=== PATIENT | male | born 1950 | race Caucasian/White ===

== ENCOUNTER → 2017-02-24 | Outpatient (CLI) | payer OTHER ==
--- NOTE | 2017-02-24 10:17 | Diagnostic Imaging Report ---
EXAMINATION: Two views of the left hip. INDICATION: Left hip pain. FINDINGS: There is mild subchondral sclerosis along the acetabulum with no significant joint space narrowing or osteophytes. No fracture or dislocation. No radiopaque foreign body. Mild degenerative sclerosis at the right SI joint is also seen. IMPRESSION: Mild degenerative changes. Dictated by: Dictated on workstation # [id number]
--- NOTE | 2017-02-24 10:18 | Diagnostic Imaging Report ---
EXAMINATION: Three views of the lumbar spine. INDICATION: Low back pain. FINDINGS: The alignment of the posterior spinal line is satisfactory. The vertebral body heights are preserved. There is mild disc height loss at the L4-5 level. Multilevel anterior osteophytes are seen. Small posterior osteophytes at the L2-3 and L3-4 levels are noted. There is suggestion of a short AP dimension of the spinal canal on a congenital basis. There is mild degenerative sclerotic change of the SI joints bilaterally. 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 Consider MRI of the lumbar spine for further evaluation. Dictated by: Dictated on workstation # [id number]
== END ==
LOC: RAD 09:28
PROVIDERS: ATTEND Nurse Practitioner
DX: M54.16 Radiculopathy, lumbar region (principal); M25.552 Pain in left hip
CPT/HCPCS: 72100; 73502

== ENCOUNTER 2018-03-08 08:46 | Emergency (ER) | payer OTHER ==
[~2018-03-08] VITALS: Ht 180.3 cm; Wt 154.2 kg
--- OUTSIDE RECORDS SUMMARY | 2018-03-08 08:52 | XMS REPORT | Continuity of Care Document ---
Author Author [facility] Organization [facility] Address Unknown Phone Unavailable Allergies Active Description Code Type Severity Reaction Onset Reported/Identified Relationship to Patient Clinical Status Yes CODIENE CODIENE Unknown N/A 11/19/2010 Medications There is no data. Problems Date Dx Coded Attending Type Code Diagnosis Diagnosed By 05/19/2015 Ot V16.0 05/19/2015 Ot V76.51 11/07/2015 CYNDIE RODRÍGUEZ DO Ot M51.36 01/02/2016 CYNDIE RODRÍGUEZ DO Ot M51.36 OTHER INTERVERTEBRAL DISC DEGENERATION, 02/26/2017 MICHAEL HU APRN Ot M25.552 PAIN IN LEFT HIP 02/26/2017 MICHAEL HU APRN Ot M54.16 RADICULOPATHY, LUMBAR REGION 03/12/2017 MICHAEL HU APRN Ot M25.552 PAIN IN LEFT HIP 03/12/2017 MICHAEL HU APRN Ot M54.16 RADICULOPATHY, LUMBAR REGION Procedures There is no data. Results There is no data. Encounters ACCT No. Visit Date/Time Discharge Status Pt. Type Provider Facility Loc./Unit Complaint [id number] 03/04/2017 09:47:00 03/04/2017 23:59:59 CLS Preadmit CYNDIE RODRÍGUEZ DO [facility] REHAB LEFT LEG PAIN; HIP PAIN; SCIATICA [id number] 02/24/2017 09:28:00 02/24/2017 23:59:59 CLS Outpatient MICHAEL HU APRN [facility] RAD LUMBAR PAIN W RADICULOPATHY,LT HIP PAIN [id number] 11/22/2015 14:42:00 01/02/2016 14:56:00 DIS Outpatient CYNDIE RODRÍGUEZ DO [facility] REHAB LUMBAR DDD;B LE PAIN/WEAKNESS [id number] 05/23/2015 10:41:00 05/23/2015 23:59:59 [facility] Preadmit CYNDIE RODRÍGUEZ DO [facility] REHAB [id number] 11/19/2010 07:41:00 Document Registration
[2018-03-08] MEDS ORDERED: MELO15TA39 (09:06)
[2018-03-08] MEDS ORDERED: DULO60CA58 (09:06)
[2018-03-08] MEDS ORDERED: ALLO100T (09:06)
[2018-03-08] MEDS ORDERED: AMLO10TA2 (09:06)
[2018-03-08] MEDS ORDERED: BENA1TAB14 (09:06)
[2018-03-08] MEDS ORDERED: LINA1TAB5 (09:06)
[2018-03-08] MEDS ORDERED: CARV25TA (09:06)
[2018-03-08] MEDS ORDERED: fentaNYL INJECTION 100 MCG/2 ML AMP IVP ONE (09:15)
[2018-03-08] MEDS ORDERED: OXYC-471 PO (09:23)
--- NOTE | 2018-03-08 09:23 | ED Integumentary General ---
General Chief Complaint: Skin/Wound Problems Stated Complaint: SHINGLES X1 MONTH, HAVE GOT WORSE Nursing Triage Note: ARRIVED VIA AMB TO ROOM 07 WITH COMPLAINTS OF SHINGLES THAT WILL NOT GO AWAY. STATES IT IS TO THE POINT HE IS NOT SLEEPING AND IT IS CAUSING PANIC ATTACKS. HAS BEEN ON TWO ROUNDS OF ANTIVIRAL AND IS CURRENTLY ON LYRICA. Source: patient Exam Limitations: no limitations History of Present Illness Date Seen by Provider: March 08, 2018 Time Seen by Provider: 09:09 Initial Comments The patient presents to the ER by private conveyance with chief complaint of shingles of his left neck and shoulder region. This is diagnosed about a month ago at an urgent care and he was put on around of antivirals. He went to see his GP later that week and she extended his antivirals as well as putting him on Lyrica 25 mg. He went back to her because the Lyrica was not helping. She increased the dose to 100 mg twice a day and he still doesn't feel is helping much. He did use a Vicodin that belonged to someone else and said they gave him about 5 hours of pain relief. He says he is having significant pain it's interrupting his sleep and causing him to feel anxious and tearful at times. He denies any fevers chills cough shortness of breath or pain elsewhere. Allergies and Home Medications Allergies Uncoded Allergies: YEFRI (Allergy, Unknown, 11/19/10) Patient Home Medication List Home Medication List Reviewed: Yes Constitutional: No chills, No diaphoresis EENTM: No ear discharge, No ear pain Respiratory: No cough, No phlegm, No short of breath Cardiovascular: No chest pain, No palpitations Gastrointestinal: No abdominal pain, No constipation, No diarrhea Genitourinary: No discharge, No dysuria Past Lzbhgtd-Bfwmle-Wbmxly Hx Patient Social History Alcohol Use: Denies Use Recreational Drug Use: No Smoking Status: Never a Smoker Recent Foreign Travel: No Contact w/Someone Who Travel: No Recent Infectious Disease Expo: No Recent Hopitalizations: No Past Medical History Surgeries: Yes Gallbladder Respiratory: No Cardiac: Yes Hypertension Neurological: No Genitourinary: No Gastrointestinal: No Musculoskeletal: No Endocrine: Yes Diabetes, Non-Insulin dep HEENT: No Cancer: No Integumentary: Yes (SHINGLES) Physical Exam Vital Signs Vital Signs - First Documented 03/08/18 08:49 Temp 98.0 Pulse 88 Resp 18 B/P (MAP) 143/90 (107) Pulse Ox 98 Capillary Refill : Less Than 3 Seconds General Appearance: WD/WN, mild distress HEENT: PERRL/EOMI, pharynx normal Neck: non-tender, normal inspection Cardiovascular: normal peripheral pulses, regular rate, rhythm, no edema Respiratory: lungs clear, normal breath sounds, no respiratory distress, no accessory muscle use Gastrointestinal: normal bowel sounds, non tender, soft Skin: other (erythematous rash with healing patches consistent with shingles. No evidence of secondary actor L infection.) Progress/Results/Core Measures Results/Orders My Orders Orders - CHRIS BHATTI Fentanyl Injection (Sublimaze Injection (03/08/18 09:15) Vital Signs/I&O 03/08/18 08:49 Temp 98.0 Pulse 88 Resp 18 B/P (MAP) 143/90 (107) Pulse Ox 98 Blood Pressure Mean: 107 Departure Impression Primary Impression: Shingles (herpes zoster) polyneuropathy Disposition: 01 HOME, SELF-CARE Condition: Stable Departure-Patient Inst. Decision time for Depature: 09:19 Referrals: CYNDIE RODRÍGUEZ DO (PCP/Family) Primary Care Physician Patient Instructions: Shingles (DC) Add. Discharge Instructions: Continue taking the Lyrica, Aleve 2 capsules twice a day. Keep your skin clean and moisturized with kkek-erk-yeqjang skin ointment. If your pain is unbearable or interrupting her sleep you can use 1 tablet of the oxycodone every 4 hours as needed. Do not mix it with alcohol. While you're using oxycodone you should also use MiraLAX 1 capful mixed in 6-8 ounces of fluid of your choice daily to keep your stools moving. 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 All discharge instructions reviewed with patient and/or family. Voiced understanding. Scripts Oxycodone HCl/Acetaminophen (Oxycodone-Acetaminophen 5-325) 1 Each Tablet 1 EACH PO Q4H PRN for PAIN, #30 TAB 0 Refills Prov: CHRIS BHATTI 03/08/18 Copy Copies To 1: CYNDIE RODRÍGUEZ TITUS J March 08, 2018 09:22
[2018-03-08 09:36] VITALS: BP 143/90
== END 2018-03-08 09:36 | disposition home or self-care (01) ==
LOC: EDUNIT# 08:46 → ER 08:48
DX: B02.8 Zoster with other complications (principal); E11.9 Type 2 diabetes mellitus without complications; I10 Essential (primary) hypertension; Z98.890 Other specified postprocedural states; Z88.5 Allergy status to narcotic agent
CPT/HCPCS: 96374; 99284

== ENCOUNTER 2018-06-04 09:03 | Outpatient (CLI) | payer OTHER ==
[~2018-06-04] VITALS: Ht 180.3 cm; Wt 149.7 kg
[~2018-06-04 09:03] MED LIST: ALLO100T; AMLO10TA2; BENA1TAB14; CARV25TA; DULO60CA58; LINA1TAB5; MELO15TA39; OXYC-471 PO
== END 2018-06-04 14:38 ==
LOC: PREOP 09:03
PROVIDERS: ATTEND Surgery
DX: Z01.818 Encounter for other preprocedural examination (principal); Z12.11 Encounter for screening for malignant neoplasm of colon

== ENCOUNTER 2022-07-19 20:21 | Outpatient (CLI) | payer MEDICARE, OTHER ==
[~2022-07-19 20:21] MED LIST changes: +AMLO-251; -AMLO10TA2; -DULO60CA58; +DULO60CA59; -OXYC-471 PO; +OXYC1TAB11 PO
== END 2022-07-20 06:20 | disposition home or self-care (01) ==
LOC: SLEEP 20:21
PROVIDERS: ATTEND Family Medicine
DX: G47.33 Obstructive sleep apnea (adult) (pediatric) (principal); I10 Essential (primary) hypertension
CPT/HCPCS: 95811

== ENCOUNTER → 2022-08-12 | Outpatient (CLI) | payer MEDICARE, OTHER | LOC: SLEEP 12:43 | PROVIDERS: ATTEND Nurse Practitioner Family | DX: G47.33 Obstructive sleep apnea (adult) (pediatric) (principal) ==

== ENCOUNTER → 2022-12-11 | Outpatient (CLI) | payer MEDICARE, OTHER ==
[~2022-12-11] VITALS: Ht 180.3 cm; Wt 148.7 kg
[~2022-12-11] MED LIST changes: +CYCL10TA25 PO; +DICL100G13 TP; +LINA1TAB PO; +NIAC1CAP PO; +TRM50T PO; +TUME1CAP PO
[2022-12-11 14:04] LABS: BASOPHILS % (AUTO) 0 % (0-10); EOSINOPHILS # (AUTO) 0.1 10^3/uL (0.0-0.3); EOSINOPHILS % (AUTO) 1 % (0-10); HEMATOCRIT 44 % (40-54); HEMOGLOBIN 14.3 g/dL (13.3-17.7); LYMPHOCYTES # (AUTO) 1.5 10^3/uL (1.0-4.0); LYMPHOCYTES % (AUTO) 15 % (12-44); MEAN CORPUSCULAR HEMOGLOBIN 29 pg (25-34); MEAN CORPUSCULAR HGB CONC 33 g/dL (32-36); MEAN CORPUSCULAR VOLUME 87 fL (80-99); MEAN PLATELET VOLUME 10.5 fL (9.0-12.2); MONOCYTES # (AUTO) 0.8 10^3/uL (0.0-1.0); MONOCYTES % (AUTO) 8 % (0-12); NEUTROPHILS # (AUTO) 7.3 10^3/uL (1.8-7.8); NEUTROPHILS % (AUTO) 75 % (42-75); PLATELET COUNT 396 10^3/uL (130-400); WHITE BLOOD COUNT 9.7 10^3/uL (4.3-11.0)
[2022-12-11 14:18] LABS: ALBUMIN 3.7 GM/DL (3.2-4.5); POTASSIUM 4.5 MMOL/L (3.6-5.0)
[2022-12-11 14:19] LABS: CALCIUM 10.4 MG/DL (8.5-10.1)
[2022-12-11 14:20] LABS: INR 1.2 (0.8-1.4); PROTHROMBIN TIME PATIENT 15.9 SEC (12.2-14.7)
[2022-12-11 14:21] LABS: ERYTHROCYTE SEDIMENTATION RATE 17 MM/HR (0-30)
[2022-12-11 14:22] LABS: BILIRUBIN,TOTAL 0.8 MG/DL (0.1-1.0)
[2022-12-11 14:24] LABS: CREATININE SERUM 1.7 MG/DL (0.60-1.30)
--- NOTE | 2022-12-11 14:38 | Physical Therapy Pre-Op Eval ---
PT Pre-Surgical Assessment Type of Surgery Type of Surgery: right TKA Prior Level of Function Current Living Status: Significant Other Locomotion (Upon Admit): Straight Cane PLOF DME: Front Wheeled Walker Subjective Subjective Patient has constant unrated pain in right knee. Home: Single Level Current Living Status: Significant Other Entry Into Home: Stairs With Railing Steps Into Home: 5 Motor Control Motor Control: Motor Control WNL ROM Patient is lacking about 10 degrees of full extension Strength Strength: WFL Gait Patient performs transfers and ambulation independently using a cane Treatment Rendered Treatment: Patient instructed in assistive device, supported ambulation. Patient instructed in and given written program of ROM and strengthening exercises to be preformed post-op. Patient instructed in movement precautions where applicable. Patient demonstrates understandings of post-operative therapy protocol including gait pattern and exercise program. Pre-operative instruction completed; await physical therapy orders after surgery. Treatment Goal Met: Yes Assessment Goals Acheived: I Ambulation w/ FWW, Understands P-op Precaut, I Post-op Exercises Charges/GCodes Time In: 1345 Time Out: 1356 Total Billed Treatment Time: 11 Total Billed Treatment 1 visit EVTON MORALES PT Dec 11, 2022 14:38
[2022-12-11 14:42] LABS: CLARITY,URINE CLEAR; COLOR,URINE YELLOW; GLUCOSE, URINE (UA) NEGATIVE (NEGATIVE); KETONES,URINE NEGATIVE (NEGATIVE); LEUKOCYTE ESTERASE ,URINE NEGATIVE (NEGATIVE); NITRITE,URINE NEGATIVE (NEGATIVE); PH,URINE 5.5 (5-9); PROTEIN,URINE 1+ (NEGATIVE)
[2022-12-11 14:54] VITALS: BP 98/68
[2022-12-11 15:06] LABS: BILIRUBIN,URINE 1+ (NEGATIVE)
[2022-12-11 15:07] LABS: BACTERIA,URINE TRACE /HPF; RBC,URINE RARE /HPF; SQUAMOUS EPITHELIAL CELL,UR RARE /HPF
--- NOTE | 2022-12-11 16:10 | Diagnostic Imaging Report ---
EXAMINATION: Chest 2 view HISTORY: Preoperative evaluation COMPARISON: None available. FINDINGS: Heart size and pulmonary vasculature are normal. The lungs are clear without consolidation, pleural effusion, or pneumothorax. Degenerative changes of the thoracic spine. Osseous structures are otherwise intact. IMPRESSION: 1. No acute radiographic abnormality in the chest. Dictated by: Dictated on workstation # [id number]
== END | disposition home or self-care (01) ==
LOC: PREOP 12:56
PROVIDERS: ATTEND Orthopaedic Surgery
DX: Z01.818 Encounter for other preprocedural examination (principal); M17.11 Unilateral primary osteoarthritis, right knee; R53.83 Other fatigue
CPT/HCPCS: 36415; 71046; 80053; 81000; 85025; 85610; 85652; 86850; 86900; 86901; 87081

== ENCOUNTER 2022-12-18 06:00 | Inpatient (IN) | payer MEDICARE, OTHER ==
--- NOTE | 2022-12-11 06:42 | HISTORY AND PHYSICAL ---
DATE OF SERVICE: 12/18/2022 ADMISSION HISTORY AND PHYSICAL This will be for inpatient admission on 12/18/2022 for right total knee arthroplasty. The patient will require regular inpatient admission due to physical therapy needs, also for gait abnormalities and pain management. HISTORY: The patient is a 72-year-old gentleman with complaints of progressively worsening right knee pain. Radiographs reveal severe tricompartmental osteoarthritis. He has undergone treatment with injections, which have provided only temporary relief of his symptoms. He reports that currently not helping. Because of this, he elected to proceed with surgical intervention. REVIEW OF SYSTEMS: No chest pain, no shortness of breath. No dysuria. PAST MEDICAL HISTORY: Hypertension and obesity. PAST SURGICAL HISTORY: Cholecystectomy, tonsillectomy, epidural in the lumbar spine. FAMILY HISTORY: Unknown. PRIMARY CARE PROVIDER: Dr. Dumas. MEDICATIONS: Turmeric, allopurinol, amlodipine, benazepril, hydrochlorothiazide, Coreg, Cymbalta, niacin, diclofenac, Jentadueto, tramadol, meloxicam, cyclobenzaprine. ALLERGIES: CODEINE. SOCIAL HISTORY: The patient denies alcohol and tobacco use. PHYSICAL EXAM: The patient is well-developed, well-nourished, in no acute distress. HEENT: Normocephalic, atraumatic. Pupils are equal, round and reactive to light. Oropharynx is clear. NECK: Supple. No lymphadenopathy. LUNGS: Clear to auscultation bilaterally. HEART: Regular rate and rhythm. ABDOMEN: Soft, nontender, nondistended. EXTREMITIES: The right knee demonstrates a moderate effusion. There is no erythema or warmth. He has marked patellofemoral crepitus and pain with patellar loading. He is tender along the medial femoral condyle. Range of motion 0/5/115. No varus or valgus laxity. Negative anterior and posterior drawer. No skin lesions are noted. IMPRESSION: Severe right knee osteoarthritis. PLAN: Right total knee arthroplasty. The risks, benefits, options, ramifications and recovery have been discussed at length with the patient. He understands and wishes to proceed. This will be for inpatient admission on 12/18/2022. Job ID: [id number] DocumentID: [id number] Dictated Date: 11/29/2022 09:30:50 Stem Roller Date: 11/29/2022 12:45:00 Dictated By: ARELI ORTEGA MD
[2022-12-18] VITALS (11 sets, daily range): BP systolic 106–157; BP diastolic 58–95
[~2022-12-18] VITALS: Ht 180.3 cm; Wt 148.0 kg
[~2022-12-18 06:00] MED LIST changes: -ALLO100T; +ALLO100T PO; -AMLO-251; +AMLO-251 PO; -BENA1TAB14; +BENA1TAB14 PO; -CARV25TA; +CARV25TA PO; -DULO60CA59; +DULO60CA59 PO; -MELO15TA39; +MELO15TA39 PO
[2022-12-18] MEDS ORDERED: CEFUROXIME INJECTION 1,500 MG in NS (IVPB) 50 ML IV ONE ×4 (06:15)
[2022-12-18] MEDS ORDERED: LACTATED RINGERS 1,000 ML IV PRN ×2 (06:15)
[2022-12-18] MEDS ORDERED: ROPIVACAINE 5MG/ML 30ML VIAL ONE (06:47)
[2022-12-18] MEDS ORDERED: LIDOCAINE PF 2% 5 ML (XYLOCAINE) VIAL ONE ×2 (06:49→06:54)
[2022-12-18] MEDS ORDERED: MIDAZOLAM 2 MG/2 ML (VERSED) VIAL ONE (06:50)
[2022-12-18] MEDS ORDERED: SEVOFLURANE (ULTANE) 15 ML INHAL SOLN ONE ×2 (06:54→09:18)
[2022-12-18] MEDS ORDERED: fentaNYL INJ 100 MCG/2 ML AMP ONE ×2 (06:54→09:36)
[2022-12-18] MEDS ORDERED: proPOfol 200 MG/20 ML (DIPRIVAN) VIAL IV ONE (06:54)
[2022-12-18] MEDS ORDERED: ONDANSETRON 4 MG/2 ML (SDV) Z0FRAN ONE (06:54)
[2022-12-18] MEDS ORDERED: NALOXONE 0.4 MG/ML 1 ML (NARCAN) VIAL IV PRN (07:15)
[2022-12-18] MEDS ORDERED: diphenhydrAMINE 50 MG/ML INJ (BENADRYL) IVP PRN (07:15)
[2022-12-18] MEDS ORDERED: ONDANSETRON 4 MG/2 ML (SDV) Z0FRAN IVP PRN ×2 (07:15→09:30)
[2022-12-18] MEDS ORDERED: morphine PCA 100 MG/100 ML BAG IV PRN (07:15)
--- NOTE | 2022-12-18 07:32 | Progress Note-Pre Operative ---
Pre-Operative Progress Note Date of Available H&P: Nov 29, 2022 Date H&P Reviewed: Dec 18, 2022 Time H&P Reviewed: 07:11 Changes from last HP none Pre-Operative Diagnosis: right knee primary osteoarthritis ARELI ORTEGA MD Dec 18, 2022 07:32
--- NOTE | 2022-12-18 07:33 | Progress Note-Post Operative ---
Post-Operative Progess Note Surgeon (s)/Informaticist (s) Surgeon ARELI ORTEGA MD Informaticist: Benny Miranda Pre-Operative Diagnosis right knee primary osteoarthritis Post-Operative Diagnosis right knee primary osteoarthritis Procedure & Operative Findings Date of Procedure 12/18/22 Procedure Performed/Findings right total knee arthroplasty Anesthesia Type GETA Estimated Blood Loss Estimated blood loss (mL): minimal Specimens/Packing Specimens Removed none Packing: none ARELI ORTEGA MD Dec 18, 2022 07:33
--- NOTE | 2022-12-18 07:35 | D/C HH Face to Face Order ---
D/C Face to Face Orders Reconcile Patient Problems Problems Reviewed?: Yes Instructions for Patient [facility], Patient Instructions/FollowUp: three weeks Physician to follow Patient: three weeks Discharge Diet for Home: Regular Diet Patient Data-Allergies,Ht & Wt Patient Allergies: Coded Allergies: codeine (Verified Allergy, Unknown, Pt has received Morphine in the past, 12/11/22) NAUSEA/VOMITING Height (Feet): 5 Height (Inches): 11.00 Weight (Pounds): 330 Weight (Ounces): 0.0 Home Health Need/Face to Face Date of Face to Face: Dec 18, 2022 Clinical Findings: Muscle weakness, Pain with ambulation, Unsteady gait I have seen Pt gtle-cs-nieo: Yes Discharged To: Home Diagnosis/Conditions: right total knee arthroplasty Patient is Homebound due to: Muscle weakness, Pain w/ambulation Homebound Status Due to the above stated illness, injury or surgical procedure (medical condition or diagnosis) and associated clinical findings, the patient is homebound because of his/her inability to leave home except with aid of a supportive device and/or person AND leaving the home requires a considerable and taxing effort or is medically contraindicated. Pt req the following assistanc: Walker Home Health Nursing Orders Home Health Services Order: Physical Therapy-Evaluate & Treat DC right knee josé miguel and apply steri strips 01/01/23 Home Health Infusion Therapy Line Start Date: Dec 18, 2022 Therapy Orders Therapy Orders: Physical Therapy, PT to assess for OT Therapy Specific Orders: Eval assistive deivces, Teach enviro modifications/safety, Gait training, Increase strength/endurance, Provider maintenance therapy, Restore ROM Certify Stmt I certify that this patient is under my care and that I, a nurse practitioner or a physician; a assistant scientist working with me, had a face to face encounter that - meets the physician face to face encounter requirements with this patient as dated. ARELI ORTEGA MD Dec 18, 2022 07:35
[2022-12-18] MEDS ORDERED: NS (IVPB) 33 ML, ROPIVACAINE INJECTION 275 MG, EPINEPHrine 1 MG INJECTION 0.5 MG, morp... IU ONE ×4 (07:45)
[2022-12-18] MEDS ORDERED: TRANEXAMIC ACID 100 MG/ML 10 ML INJECTION ONE (07:52)
[2022-12-18] MEDS ORDERED: HYDROmorphone 2 MG/ML VIAL (DILAUDID) ONE ×2 (08:02→09:26)
[2022-12-18] MEDS ORDERED: PHENYLEPHRINE 100 MCG/ML 10 ML (ANESTHESIA) SYR ONE (08:59)
[2022-12-18] MEDS ORDERED: fentaNYL INJ 100 MCG/2 ML AMP IVP ONE (09:30)
[2022-12-18] MEDS ORDERED: HYDROmorphone 2 MG/ML VIAL (DILAUDID) IV ONE (09:30)
--- NOTE | 2022-12-18 10:07 | Progress Note ---
Standard Progress Note Progress Notes/Assess & Plan Date Seen by a Provider: Dec 18, 2022 Time Seen by a Provider: 09:37 Progress/Assessment & Plan post op check denies paresthesias radiographs--HW well positioned without fracture RLE--2 plus DP pulse with brisk cap refill intact DF and PF of toes and ankle sensation intact to light touch throughout s/p RTKA mobilize as able ARELI ORTEGA MD Dec 18, 2022 10:07
[2022-12-18] MEDS: NS IV 1000 ML 1,000 ML IV SCH ×2 (10:52→20:58)
[2022-12-18] MEDS: oxyCODONE/APAP 5/325MG (PERCOCET 5) TABLET PO PRN ×2 (10:53→23:30)
[2022-12-18] MEDS: SENNA W/DOCUSATE (SENOKOT S) TABLET PO SCH ×2 (10:53→20:58)
[2022-12-18] MEDS: CYCLOBENZAPRINE 10 MG (FLEXERIL) TAB PO PRN (10:58)
--- NOTE | 2022-12-18 13:43 | Physical Therapy Evaluation ---
PT Evaluation-General Medical Diagnosis Admission Date Dec 18, 2022 at 06:00 Medical Diagnosis: Right TKA Onset Date: Dec 18, 2022 Therapy Diagnosis Therapy Diagnosis: gait deficit, strength deficit Height/Weight Height (Feet): 5 Height (Inches): 11.00 Weight (Pounds): 330 Weight (Ounces): 0.0 Precautions Precautions/Isolations: Fall Prevention Weight Bear Status Right Lower Extremity: Right Weight Bearing/Tolerated Left Lower Extremity: Left Full Weight Bearing Referral Physician: Dr. Delarosa Reason for Referral: Evaluation/Treatment Medical History Reviewed History: Yes Social History Home: [facility] Current Living Status: Significant Other Entry Into Home: Stairs With Railing PT Steps Into Home: 3 PT Steps Inside Home: 10 Prior Prior Level of Function SCALE: Activities may be completed with or without assistive devices. 5-Uokvhkktoa-pxqvthz completes the activity by him/herself with no assistance from a helper. 5-Set-up or Clean-up Assistance-helper sets up or cleans up; patient completes activity. War assists only prior to or following the activity. 4-Supervision or Touching Assistance-helper provides verbal cues and/or touching/steadying and/or contact guard assistance as patient completes activity. Assistance may be provided throughout the activity or intermittently. 3-Partial/Moderate Assistance-helper does LESS THAN HALF the effort. War lifts, holds or supports trunk or limbs, but provides less than half the effort. 2-Substantial/Maximal Assistance-helper does MORE THAN HALF the effort. War lifts or holds trunk or limbs and provides more than half the effort. 4-Tgtbpmaln-kfxsmr does ALL the effort. Patient does none of the effort to complete the activity. Or, the assistance of 2 or more helpers is required for the patient to complete the activity. If activity was not attempted, code reason: 7-Patient Refused. 9-Not Applicable-not attempted and the patient did not perform the activity before the current illness, exacerbation or injury. 10-Not Attempted due to Environmental Limitations-(lack of equipment, weather restraints, etc.). 88-Not Attempted due to Medical Conditions or Safety Concerns. Bed Mobility: 6 Transfers (B,C,W/C): 6 Gait: 6 Stairs: 6 Indoor Mobility (Ambulation): Independent Stairs: Independent Prior Devices Use: None Will Need FWW for discharge to home. PT Evaluation-Current Subjective Patient lying supine in bed upon PT arrival, agreeable to treatment. Patient rates pain in right knee at 4/10. Patient states he does not have to go to the second story of his house, but will need a FWW for home use. Objective Patient Orientation: Person, Place, Time, Situation Attachments: Oxygen, Polar Pack, IV ROM/Strength ROM Lower Extremities Left LE WFLs all observed planes. Right knee 15 degrees from full extension in sitting; flexion 80 degrees in sitting. All other right LE ROMs WFLs Strength Lower Extremities Left LE 5/5 all planes. Right hip 4-/5 all planes, right knee extension 3-/5, flexion 3-/5. Sensory Hearing: Functional Sensation Right Lower Extremit: Intact Sensation Left Lower Extremity: Intact Transfers Roll Left to Right (QC): 5 Sit to Lying (QC): 5 Lying to Sitting/Side of Bed(Q: 5 Sit to Stand (QC): 2 Chair/Map-lr-Qmjsu Xfer(QC): 4 Gait Does the Patient Walk?: Yes Mode of Locomotion: Walk Anticipated Mode of Locomotion: Walk Walk 10 feet (QC): 88 Distance: 5 feet Gait Assistive Device: FWW Balance Sitting Static: Good Sitting Dynamic: Good Standing Static: Fair Standing Dynamic: Fair Assessment/Needs Patient tolerated treatment well. Performs bed mobility with supervision. However upon attempting to stand requires max A and bed raised to assist in standing. Patient ambulates 5 feet with FWW with CGA and verbal cues to the chair. Patient in chair post treatment with all needs met, nursing notified, call light in hand. Rehab Potential: Good PT Fdc Goals Fdc Goals PT Gin Inspector Goals Time Frame: Dec 28, 2022 Roll Left & Right (QC): 6 Sit to Lying (QC): 6 Lying-Sitting on Side/Bed(QC): 6 Sit to Stand (QC): 6 Chair/Iho-jp-Jpnci Xfer(QC): 6 Toilet Transfer (QC): 6 Does the Patient Walk: Yes Walk 10 feet (QC): 4 Walk 50ft with 2 Turns (QC): 4 Walk 150 ft (QC): 4 1 Step (curb) (QC): 4 4 Steps (QC): 4 12 Steps (QC): 4 PT Plan Problem List Problem List: Activity Tolerance, Functional Strength, Safety, Balance, Gait, Transfer, Bed Mobility, ROM Treatment/Plan Treatment Plan: Continue Plan of Care Treatment Plan: Bed Mobility, Education, Functional Activity Yonatan, Functional Strength, Group Therapy, Gait, Safety, Therapeutic Exercise, Transfers Treatment Duration: Jan 18, 2023 Frequency: 11 times per week Estimated Hrs Per Day: .25 hour per day Safety Risks/Education Patient Education: Gait Training, Transfer Techniques Teaching Recipient: Patient Teaching Methods: Demonstration, Discussion Response to Teaching: Verbalize Understanding, Return Demonstration Time Time In: 1310 Time Out: 1335 DATE: Dec 18, 2022 Total Billed Treatment Time: 25 Total Billed Treatment Visit, KIMBERLEY TURPIN JOHN A PT Dec 18, 2022 13:43
--- NOTE | 2022-12-18 14:28 | OPERATIVE REPORT ---
DATE OF SERVICE: 12/18/2022 PREOPERATIVE DIAGNOSIS:. Right knee primary osteoarthritis. POSTOPERATIVE DIAGNOSIS: Right knee primary osteoarthritis. PROCEDURE: Right total knee arthroplasty. SURGEON: Jean Claude Ortega MD JOURNEYMAN PIPE WELDER: Benny Miranda, who assisted throughout the procedure and closed the incision. ANESTHESIA: General endotracheal by Bandar Lowery CRNA. TOURNIQUET TIME: Approximately 70 minutes at 300 mmHg. ESTIMATED BLOOD LOSS: Minimal. DRAINS: None. COMPLICATIONS: None. POSTOPERATIVE PLAN: Routine protocol. MATERIALS: MicroPort cemented size 6 femur, cemented size 6+ tibia with 10 mm insert and cemented size 35 patellar button. STATEMENT OF MEDICAL NECESSITY: The patient is a 72-year-old gentleman with longstanding progressive right knee pain. Radiographs revealed severe tricompartmental osteoarthritis. He has been treated with injections and anti-inflammatories without relief. Due to functional impairment and failure to improve with conservative measures, the patient elected to proceed with surgical intervention. DESCRIPTION OF PROCEDURE: After risks and benefits of the procedure were discussed and questions were answered and informed consent was signed and placed on the chart, the operative site was confirmed in the preoperative holding area, initialed by surgeon. The patient was then transported to the operating room and after adequate levels of general endotracheal anesthetic were obtained, timeout was called, confirming the operative site. The right lower extremity was prepped and draped in the usual sterile fashion with the leg elevated and the knee flexed, tourniquet inflated to 300 mmHg. Standard anterior approach was utilized. Hemostasis was obtained with cautery. Medial parapatellar arthrotomy was performed, leaving 1 cm cuff on the patella for later reattachment. A portion of the fat pad was resected. Subperiosteal release was performed in the proximal medial tibia. The ACL was resected. The intramedullary guide was passed into the femoral canal. The distal cutting block was placed and distal cut was made. The femur sized to a size 6. The 6 cutting block was placed parallel to the epicondylar axis and cuts were made from posterior to anterior. Subperiosteal release was then carefully performed on the posterior distal femur, being careful to stay on the bony surface with curved osteotome. The intramedullary guide was then passed into the tibial. The cutting block was placed. The drop chikis transected the intermalleolar axis and the cut was made. The 6+ baseplate was placed. Again, the drop chikis transected the intermalleolar axis and this was prepared with the drill and keel punch. The femoral trial was placed and trochlear cut was made. The patella was prepared by resecting 10 mm off the under surface. The peg guide was placed and peg holes were drilled. The 35 trial was placed and the knee was taken through range of motion. Full extension was easily obtained, 20 degrees of flexion with gravity was easily obtained. The patella tracked well. There was no anterior/posterior or medial/lateral laxity in flexion or extension. The trials were removed. The periarticular block was placed in the posterior capsule, medial and lateral retinaculum, extensor mechanism and subcutaneous tissues. The bone ends were irrigated and dried. The tibial baseplate cemented into position. Excessive cement was removed. The superior surface was irrigated and dried. The tibial insert was placed. The distal femur was irrigated and dried and the femoral prosthesis was cemented into position. Excessive cement was removed. The knee was brought out in full extension until cement cured. The undersurface of the patella was irrigated and dried and the patellar button was cemented into position. Excessive cement was removed. Once the cement had cured, the knee was taken through range of motion. Full extension was easily obtained under 20 degrees of flexion with gravity was easily obtained. The patella tracked well. There was no anterior/posterior or medial/lateral laxity in flexion or extension. The joint was further irrigated with pulse lavage. The arthrotomy was closed with #2 Tevdek in ahtedb-vh-meuxu interrupted fashion. Knee was flexed. The repair was stable. Subcutaneous tissues were irrigated using a total of 6 liters throughout the procedure, 0 Vicryl was used for the deep subcutaneous layer, 2-0 Vicryl for the superficial subcutaneous layer, josé miguel used on the skin. A soft dressing was applied. The tourniquet was deflated. The patient was transferred to recovery room awake and in stable condition. Job ID: [id number] DocumentID: [id number] Dictated Date: 12/18/2022 09:27:21 Gas Appliance Servicer Date: 12/18/2022 14:26:00 Dictated By: JEAN CLAUDE ORTEGA MD
[2022-12-18] MEDS: CEFUROXIME INJECTION 750 MG in NS (IVPB) 50 ML IV SCH ×2 (15:31→23:31)
[2022-12-18] MEDS: inSUlin ASPART (NovoLOG) 1 UNIT/0.01 ML (CHARGE PER UNIT) SC SCH ×2 (15:31→20:58)
--- NOTE | 2022-12-18 15:35 | Diagnostic Imaging Report ---
EXAMINATION: Right knee radiographs, 2 views. COMPARISON: None. HISTORY: 72-year-old male, right knee prosthesis placement. FINDINGS: There is a right total knee prosthesis. There are anterior skin josé miguel. Soft tissue and intra-articular gas likely reflect the recent post operative state of the patient. There is a probable very large knee joint effusion. There is a chronic deformity of the proximal fibular diaphysis. There is no identified acute fracture. There is material overlying the patient which does limit the study. IMPRESSION: 1. Right total knee prosthesis noted without hardware complication. 2. Probable very large knee joint effusion. 3. No radiographically apparent acute fracture. Dictated by: Dictated on workstation # [id number]
[2022-12-18] MEDS ORDERED: TURM500T PO (16:08)
[2022-12-18] MEDS ORDERED: PATIENT MAY USE OWN MEDS, ALL MC SCH ×2 (18:00→19:15)
--- NOTE | 2022-12-18 18:10 | Consultation ---
History of Present Illness History of Present Illness Patient Consulted On(serafin/time) 12/18/22 18:05 Date Seen by Provider: Dec 18, 2022 Time Seen by Provider: 12:45 History of Present Illness This is a 72 year old male who underwent right TKA by Dr. Delarosa today. I follow the patient medically for hypertension, diabetes, hyperlipidemia and sleep apnea. I am asked to consult postoperatively for medical management. The patient is currently resting comfortably in bed with his ice device on his knee and no complaints. His pain is currently well controlled and he denies nausea. He is still a little groggy from anesthesia but no complaints at this time. Allergies and Home Medications Allergies Coded Allergies: codeine (Verified Allergy, Unknown, Pt has received Morphine in the past, 12/11/22) NAUSEA/VOMITING Patient Home Medication List Home Medication List Reviewed: Yes Allopurinol (Allopurinol) 100 Mg Tablet, 100 MG PO 1800, (Reported) Entered as Reported by: YUNI EASTMAN on 03/08/18905 Last Action: Reviewed Amlodipine Besylate (Amlodipine Besylate) 10 Mg Tablet, 10 MG PO HS, (Reported) Entered as Reported by: YUNI EASTMAN on 03/08/18905 Last Action: Reviewed Benazepril/Hydrochlorothiazide (Benazepril-Hctz 20-12.5 mg Tab) 20 Mg-12.5 Mg Tablet, 2 EA PO DAILY, (Reported) Entered as Reported by: YUNI EASTMAN on 03/08/18905 Last Action: Reviewed Carvedilol (Carvedilol) 25 Mg Tablet, 50 MG PO 1800, (Reported) Entered as Reported by: YUNI EASTMAN on 03/08/18905 Last Action: Reviewed Cyclobenzaprine HCl (Cyclobenzaprine HCl) 10 Mg Tablet, 10 MG PO TID PRN for MUSCLE SPASMS, (Reported) Entered as Reported by: CHAZ NAJERA on 12/11/22 1153 Last Action: Reviewed Duloxetine HCl (Duloxetine HCl) 60 Mg Capsule.dr, 60 MG PO 1800, (Reported) Entered as Reported by: YUNI EASTMAN on 03/08/18905 Last Action: Reviewed Linagliptin/Metformin HCl (Jentadueto 2.5 mg-500 mg Tab) 2.5 Mg-500 Mg Tablet, 1 EACH PO 1800, (Reported) Entered as Reported by: CHAZ NAJERA on 12/11/221152 Last Action: Reviewed Meloxicam (Meloxicam) 15 Mg Tablet, 15 MG PO DAILY PRN for PAIN BREAKTROUGH, (Reported) Entered as Reported by: YUNI EASTMAN on 03/08/18905 Last Action: Reviewed Tramadol HCl (Tramadol HCl) 50 Mg Tablet, 50-100 MG PO Q6H PRN for PAIN-MODERATE (5-7), (Reported) Entered as Reported by: CHAZ NAJERA on 12/11/221152 Last Action: Reviewed Turmeric Root Extract (Turmeric) 500 Mg Tablet, 500 MG PO DAILY, (Reported) Entered as Reported by: ASHLEIGH PATEL on 12/18/22 1608 Last Action: Reviewed Discontinued Medications Diclofenac Sodium (Diclofenac Sodium) 1 % Gel..gram., 100 GM TP UD, (Reported) Discontinued Reason: No Longer Taking Entered as Reported by: CHAZ NAJERA on 12/11/221152 Last Action: Discontinued Niacin (Inositol Niacinate) (Niacin 500 mg Capsule) 500 Mg Capsule, 500 MG PO UD, (Reported) Discontinued Reason: No Longer Taking Entered as Reported by: CHAZ NAJERA on 12/11/221153 Last Action: New Order Oxycodone HCl/Acetaminophen (Oxycodone-Acetaminophen 5-325) 1 Each Tablet, 1 EACH PO Q4H PRN for PAIN Discontinued Reason: No Longer Taking Prescribed by: CHRIS BHATTI on 03/08/18922 Last Action: Discontinued Tumeric/Ging/[place]/Oreg/Capryl (Candicidal Capsule) Unknown Strength Capsule, Unknown Dose PO, (Reported) Discontinued Reason: Prescription changed Entered as Reported by: CHAZ NAJERA on 12/11/221152 Last Action: New Order Past Ggqmzrk-Bckoya-Vwgfme Hx Patient Social History Smoking Status: Never a Smoker Substance use?: No Alcohol Use?: No Pt feels they are or have been: No Immunizations Up To Date Date of Influenza Vaccine: Jul 16, 2023 First/Initial COVID19 Vaccinat: 01/29/21 Second COVID19 Vaccination Serafin: 02/26/21 Date of Pneumonia Vaccine: Aug 10, 2022 Seasonal Allergies Seasonal Allergies: No Current Status Advance Directives: No Primary Language: Kiswahili Preferred Spoken Language: Kiswahili Is interpretation needed?: No Past Medical History Surgeries: Gallbladder, Tonsillectomy Sleep Apnea Currently Using CPAP: Yes Currently Using BIPAP: No Hypertension Sexually Transmitted Disease: No HIV/AIDS: No Arthritis Diabetes, Non-Insulin dep Loss of Vision: Denies Hearing Impairment: Denies Blood Disorders: No Adverse Reaction/Blood Tranf: No (N/A) Review of Systems Review of Systems General: No Chills, No Night Sweats, No Fatigue, No Malaise, No Appetite, No Other HEENT: No Head Aches, No Visual Changes, No Eye Pain, No Ear Pain, No Dysphasia, No Sinus Congestion, No Post Nasal Drip, No Sore Throat, No Other Pulmonary: No Dyspnea, No Cough, No Pleuritic Chest Pain, No Other Cardiovascular: Edema Gastrointestinal: No: Nausea, Vomiting, Abdominal Pain, Diarrhea, Constipation, Melena, Hematochezia, Other Genitourinary: No Dysuria, No Frequency, No Incontinence, No Hematuria, No Retention, No Other Musculoskeletal: leg pain Neurological: No: Weakness, Numbness, Incoordination, Change in speech, Confusion, Seizures, Other Physical Exam Vital Signs Vital Signs - First Documented 12/18/22 06:20 Temp 36.1 Pulse 96 Resp 20 B/P (MAP) 115/69 (84) Pulse Ox 96 O2 Delivery Room Air Capillary Refill : Height, Weight, BMI Height: 5'11.00" Weight: 330lbs. 0.0oz. 149.742274wh; 45.52 BMI Method:Stated General Appearance: No Apparent Distress HEENT: Normal ENT Inspection Neck: Supple Respiratory: Lungs Clear Cardiovascular: Regular Rate, Rhythm, Gallop/S4 Gastrointestinal: Normal Bowel Sounds, Non Tender, Soft Rectal: Deferred Back: No CVA Tenderness Extremity: Non Tender, No Calf Tenderness, No Pedal Edema, Other (ALVA hose in place bilaterally with right knee ice brace on ) Neurologic/Psychiatric: Alert, Oriented x3 Skin: Warm/Dry Comments Laboratory Tests 12/18/22 06:20: Calcium Level 10.2H 12/18/22 06:52: Glucometer 133H 12/18/22 15:40: Glucometer 120H Assessment/Plan Assessment/Plan Admission Dx 1. Right Unilateral Knee Arthritis--S/P Right TKA per ortho today--pain control, PT/OT, IS, lovenox for DVT prophylaxis, monitor H/H 2. Hypertension--resume home meds 3. DMII--start Jentadueto and accuchecks with SSI A 4. BEV--brought home CPAP CYNDIE RODRÍGUEZ DO Dec 18, 2022 18:10
[2022-12-18] MEDS: CARVEDILOL 25 MG TAB PO SCH (20:57)
[2022-12-18] MEDS: JENTADUETO PO SCH (20:57)
[2022-12-19 04:00] VITALS: BP 105/94
[2022-12-19] MEDS: oxyCODONE/APAP 5/325MG (PERCOCET 5) TABLET PO PRN ×5 (04:34→18:36)
[2022-12-19 05:38] LABS: HEMOGLOBIN 11.6 g/dL (13.3-17.7)
[2022-12-19] MEDS: inSUlin ASPART (NovoLOG) 1 UNIT/0.01 ML (CHARGE PER UNIT) SC SCH ×4 (05:52→20:49)
[2022-12-19 07:33] VITALS: BP 145/56
[2022-12-19] MEDS: JENTADUETO PO SCH ×2 (07:43→18:34)
[2022-12-19] MEDS: ENOXAPARIN INJECTION 30 MG/0.3 ML SYR SC SCH ×2 (07:43→21:08)
[2022-12-19] MEDS: ASPIRIN E.C. 81 MG (ECOTRIN) TAB PO SCH (07:44)
[2022-12-19] MEDS: NS IV 1000 ML 1,000 ML IV SCH ×2 (07:44→18:37)
[2022-12-19] MEDS: SENNA W/DOCUSATE (SENOKOT S) TABLET PO SCH ×2 (07:45→21:08)
[2022-12-19] MEDS: CYCLOBENZAPRINE 10 MG (FLEXERIL) TAB PO PRN ×2 (07:45→18:36)
[2022-12-19] MEDS: CARVEDILOL 25 MG TAB PO SCH ×2 (07:45→21:37)
[2022-12-19] MEDS: amLODIPine 10 MG (NORVASC) TAB PO SCH (07:45)
--- NOTE | 2022-12-19 08:07 | Progress Note ---
Standard Progress Note Progress Notes/Assess & Plan Date Seen by a Provider: Dec 19, 2022 Time Seen by a Provider: 08:01 Progress/Assessment & Plan post op check denies paresthesias radiographs--HW well positioned without fracture RLE--2 plus DP pulse with brisk cap refill intact DF and PF of toes and ankle sensation intact to light touch throughout s/p RTKA mobilize as able Final Diagnosis no complaints ambulating with PT Vital Signs Date Time Temp Pulse Resp B/P (MAP) Pulse Ox O2 Delivery O2 Flow Rate FiO2 12/19/22 07:33 37.0 101 18 145/56 (85) 91 Room Air 12/19/22 05:01 18 12/19/22 04:00 37.4 97 18 105/94 (98) 90 Room Air 12/18/22 23:33 36.5 86 18 117/68 (84) 91 Room Air 12/18/22 20:25 36.1 89 20 106/58 (74) 94 Room Air 12/18/22 20:00 Room Air 12/18/22 16:03 36.1 89 16 117/79 (92) 91 Room Air 12/18/22 11:48 36.3 103 18 141/79 (99) 91 Room Air 12/18/22 10:15 Nasal Cannula 2.00 12/18/22 10:10 36.5 12 152/92 (112) 95 Nasal Cannula 2.00 12/18/22 10:05 OxyMask 2.00 12/18/22 10:00 12 151/95 (113) 98 OxyMask 2.00 12/18/22 09:50 OxyMask 8 12/18/22 09:50 13 129/72 (91) 98 OxyMask 8 12/18/22 09:40 12 138/91 (107) 99 OxyMask 8 12/18/22 09:35 OxyMask 8 12/18/22 09:30 16 157/89 (111) 98 OxyMask 8 12/18/22 09:22 OxyMask 8 12/18/22 09:22 36.4 16 144/84 (104) 99 OxyMask 8 I & O 12/19/22 07:00 Intake Total 1860 ml Output Total 400 ml Balance 1460 ml Laboratory Tests Test 12/18/22 15:40 12/18/22 20:41 12/19/22 05:25 12/19/22 05:51 Range/Units Glucometer 120 H 122 H 134 H 70-110 MG/DL Hemoglobin 11.6 L 13.3-17.7 g/dL Hematocrit 36 L 40-54 % RLE--dressing intact no calf tenderness s/p RTKA doing well PT/OT ARELI ORTEGA MD Dec 19, 2022 08:07
[2022-12-19] MEDS ORDERED: BENAZEPRIL HYDROCHLOROTHIAZIDE PO SCH (09:00)
[2022-12-19] MEDS ORDERED: DULoxetine 30 MG (CYMBALTA) CAP PO SCH (09:00)
[2022-12-19] MEDS ORDERED: amLODIPine 5 MG (NORVASC) TAB PO SCH (09:00)
--- NOTE | 2022-12-19 09:03 | Anesthesia-General Post-Op ---
General Patient Condition Mental Status/LOC: Same as Preop Cardiovascular: Satisfactory Nausea/Vomiting: Absent Respiratory: Satisfactory Pain: Controlled Complications: Absent Post Op Complications Complications None Follow Up Care/Instructions Patient Instructions None needed. Anesthesia/Patient Condition Patient Condition Patient is doing well, no complaints, stable vital signs, no apparent adverse anesthesia problems. No complications reported per nursing. D/C home per [facility] Criteria: Yes MAX MOORE CRNA Dec 19, 2022 09:03
--- NOTE | 2022-12-19 10:30 | Physical Therapy Daily Note ---
PT Daily Note-Current Subjective Patient agrees to PT. Just received pain pill. Pain Numeric Pain Scale: 5-Moderate Pain Location: Right Location Body Site: Knee Pain Description: Acute Section J - Health Conditions 1. Rarely or not at all 2. Occasionally 3. Frequently 4. Almost constantly 8. Unable to answer Pain Effect on Sleep: 1 Pain Interference with Therapy: 1 Pain Interference w/Day-to-Day: 1 Mental Status Patient Orientation: Normal For Age Attachments: IV Transfers SCALE: Activities may be completed with or without assistive devices. 8-Zixcazebpm-sofqhlp completes the activity by him/herself with no assistance from a helper. 5-Set-up or Clean-up Assistance-helper sets up or cleans up; patient completes activity. [place] assists only prior to or following the activity. 4-Supervision or Touching Assistance-helper provides verbal cues and/or touching/steadying and/or contact guard assistance as patient completes activity. Assistance may be provided throughout the activity or intermittently. 3-Partial/Moderate Assistance-helper does LESS THAN HALF the effort. [place] lifts, holds or supports trunk or limbs, but provides less than half the effort. 2-Substantial/Maximal Assistance-helper does MORE THAN HALF the effort. [place] lifts or holds trunk or limbs and provides more than half the effort. 3-Ubiuhbqpo-ncczhw does ALL the effort. Patient does none of the effort to complete the activity. Or, the assistance of 2 or more helpers is required for the patient to complete the activity. If activity was not attempted, code reason: 7-Patient Refused. 9-Not Applicable-not attempted and the patient did not perform the activity before the current illness, exacerbation or injury. 10-Not Attempted due to Environmental Limitations-(lack of equipment, weather restraints, etc.). 88-Not Attempted due to Medical Conditions or Safety Concerns. Lying to Sitting/Side of Bed(Q: 6 Sit to Stand (QC): 4 Chair/Soc-ku-Ygtut Xfer(QC): 4 Weight Bearing Right Lower Extremity: Right Weight Bearing/Tolerated Left Lower Extremity: Left Full Weight Bearing Gait Training Distance: 250' Walk 10 feet (QC): 4 Walk 50 ft with 2 Turns(QC): 4 Walk 150 ft (QC): 4 Gait Assistive Device: FWW VC's for body placement in FWW due to extended UE posture/use/antalgic gait sequence Exercises Supine Ex: Ankle pumps, Quad Set, Heel Slides, Straight leg raise Supine Reps: 15 Seated Therapy Exercises: Long arc quads Seated Reps: 15 Assessment Patient's right knee AROM improving with exercise program. Patient progressing per plan and will dismiss to home tomorrow after PT per physician report. PT Fpc Goals Fpc Goals PT Fpc Goals Time Frame: Dec 28, 2022 Roll Left & Right (QC): 6 Sit to Lying (QC): 6 Lying-Sitting on Side/Bed(QC): 6 Sit to Stand (QC): 6 Chair/Jbk-vl-Mpnup Xfer(QC): 6 Toilet Transfer (QC): 6 Does the Patient Walk: Yes Walk 10 feet (QC): 4 Walk 50ft with 2 Turns (QC): 4 Walk 150 ft (QC): 4 1 Step (curb) (QC): 4 4 Steps (QC): 4 12 Steps (QC): 4 PT Plan Treatment/Plan Treatment Plan: Continue Plan of Care Treatment Plan: Bed Mobility, Education, Functional Activity Yonatan, Functional Strength, Group Therapy, Gait, Safety, Therapeutic Exercise, Transfers Treatment Duration: Jan 18, 2023 Frequency: 11 times per week Estimated Hrs Per Day: .25 hour per day Time Time In: 740 Time Out: 809 DATE: Dec 19, 2022 Total Billed Treatment Time: 29 Total Billed Treatment 1 visit EX 18 min GT 11 min ZHANNA CISSE PT Dec 19, 2022 10:30
--- NOTE | 2022-12-19 10:41 | Occupational Therapy Eval ---
OT Evaluation-General/PLF Medical Diagnosis Admission Date Dec 18, 2022 at 06:00 Medical Diagnosis: Right TKA Onset Date: Dec 18, 2022 Therapy Diagnosis Therapy Diagnosis: weakness, need for assistance w/ self care Height/Weight Height (Feet): 5 Height (Inches): 11.00 Weight (Pounds): 330 Weight (Ounces): 0.0 Precautions Precautions/Isolations: Fall Prevention, Standard Precautions Weight Bear Status Weight Bearing Restriction: Weight Bearing/Tolerated Location Restriction: R LE Referral Physician: Dr. Delarosa Referral Reason: Self Care, Evaluation/Treatment Medical History Pertinent Medical History: DM, HTN Additional Medical History sleep apnea, CPAP Current History s/p RTKA Social History Home: Multilevel Current Living Status: Significant Other Entry Into Home: Stairs With Railing Steps Into Home: 3 Steps Inside Home: 10 Other Obstacles: narrow passagesways, old house ADL-Prior Level of Function SCALE: Activities may be completed with or without assistive devices. 4-Gqhfyukzwt-rmedrkd completes the activity by him/herself with no assistance from a helper. 5-Set-up or Clean-up Assistance-helper sets up or cleans up; patient completes activity. [place] assists only prior to or following the activity. 4-Supervision or Touching Assistance-helper provides verbal cues and/or touching/steadying and/or contact guard assistance as patient completes activity. Assistance may be provided throughout the activity or intermittently. 3-Partial/Moderate Assistance-helper does LESS THAN HALF the effort. [place] lifts, holds or supports trunk or limbs, but provides less than half the effort. 2-Substantial/Maximal Assistance-helper does MORE THAN HALF the effort. [place] lifts or holds trunk or limbs and provides more than half the effort. 5-Bejadmjyl-wiwbcl does ALL the effort. Patient does none of the effort to complete the activity. Or, the assistance of 2 or more helpers is required for the patient to complete the activity. If activity was not attempted, code reason: 7-Patient Refused. 9-Not Applicable-not attempted and the patient did not perform the activity before the current illness, exacerbation or injury. 10-Not Attempted due to Environmental Limitations-(lack of equipment, weather restraints, etc.). 88-Not Attempted due to Medical Conditions or Safety Concerns. Self Care: Independent Functional Cognition: Independent DME/Equipment: Bath Chair (tub shower), Tall Toilet (uses lavatory to assist w/ transfer at times) DME/Equipment Comments used cane prior to surgery, has walker at home, partner will bring to hospital tomorrow to access safety of device Occupation: retired Drive Self: Yes OT Current Status Subjective Laying supine reclined in bed w/ partner present , "It's been an busy morning" Pain Numeric Pain Scale: 0-No Pain Comment: pain present w/LB dressing and transition to stand/sit 5/10 resolves w/rest Mental Status/Objective Patient Orientation: Person, Place, Time, Situation Attachments: Other-See Comments (wound dressing R knee) Current Glasses/Contacts: No Hearing Aids: No Dentures/Partials: No Upper Extremity ROM BUE ROM WNL Upper Extremity Strength BUE Strength +4/5MMT however weakness to transition push form surface to stand ADL-Treatment ADL-Current OT provided simulated tub shower transfers w/ pt/partner , pt declined shower currently, LB dressing sequences, and ADL transfer education. Patient is hesitant to stand and requires additional time and specific hand placement instruction as well as use of FWW, projected plan to sleep in recliner at home to decrease assistance out of bed Eating (QC): 6 Oral Hygiene (QC): 6 Shower/Bathe Self (QC): 4 Upper Body Dressing (QC): 6 Lower Body Dressing (QC): 4 On/Off Footwear (QC): 4 Toileting Hygiene (QC): 7 (declined performance) Education OT Patient Education: Correct positioning, Exercise program, Instructions to caregiver, Modified ADL techniques, Progress toward Goal/Update tx plan, Purpose of tx/functional activities, Reviewed precautions, Rehab process, Safety issues, Transfer techniques, Use of adapted equipment Teaching Recipient: Patient, Significant Other Teaching Methods: Demonstration, Discussion Response to Teaching: Verbalize Understanding, Return Demonstration, Reinforcement Needed OT Jail Goals Jail Goals Toileting Hygiene (QC): 6 Shower/Bathe Self (QC): 6 Upper Body Dressing (QC): 6 Lower Body Dressing (QC): 6 On/Off Footwear (QC): 6 1=Demonstrate adherence to instructed precautions during ADL tasks. 2=Patient will verbalize/demonstrate understanding of assistive devices/modifications for ADL. 3=Patient will improve strength/tolerance for activity to enable patient to perform ADL's. OT Education/Plan Problem List/Assessment Assessment: Decreased Activ Tolerance, Decreased Safety Aware, Decreased UE Strength, Impaired Coordination, Impaired Funct Balance, Impaired I ADL's, Impaired Self-Care Skills Discharge Recommendations Plan/Recommendations: Continue POC Therapy Discharge Recommendati: Post Acute OT Treatment Plan/Plan of Care Treatment,Training & Education: Yes Patient would benefit from OT for education, treatment and training to promote independence in ADL's, mobility, safety and/or upper extremity function for ADL's. Plan of Care: ADL Retraining, Functional Mobility, UE Funct Exercise/Act Treatment Duration: Dec 28, 2022 Frequency: 3 times per week (3-5 times per week) Estimated Hrs Per Day: .25 hour per day Agreement: Yes Rehab Potential: Good Patient returned to bed, Partner in room all needs met Time Start Time: 10:00 Stop Time: 10:28 DATE: Dec 19, 2022 Total Time Billed (hr/min): 28 Billed Treatment Time 1 visit ADL 2 28 min JONEL SANDOVAL OT Dec 19, 2022 10:41
[2022-12-19 11:31] VITALS: BP 108/54
--- NOTE | 2022-12-19 13:08 | Progress Note ---
Subjective Date Seen by a Provider: Dec 19, 2022 Time Seen by a Provider: 08:30 Subjective/Events-last exam Fwup HTN, DMII, BEV, S/P right TKA. Did well with PT this morning. Pain well controlled. Objective Exam Vital Signs Date Time Temp Pulse Resp B/P (MAP) Pulse Ox O2 Delivery O2 Flow Rate FiO2 12/19/22 11:31 37.0 84 18 108/54 (72) 86 Room Air 12/19/22 08:00 Room Air 12/19/22 07:33 37.0 101 18 145/56 (85) 91 Room Air 12/19/22 07:30 18 12/19/22 05:01 18 12/19/22 04:00 37.4 97 18 105/94 (98) 90 Room Air 12/18/22 23:33 36.5 86 18 117/68 (84) 91 Room Air 12/18/22 20:25 36.1 89 20 106/58 (74) 94 Room Air 12/18/22 20:00 Room Air 12/18/22 16:03 36.1 89 16 117/79 (92) 91 Room Air I & O 12/19/22 07:00 Intake Total 1860 ml Output Total 400 ml Balance 1460 ml Capillary Refill : General Appearance: No Apparent Distress Neck: Supple Respiratory: Lungs Clear Cardiovascular: Regular Rate, Rhythm Gastrointestinal: normal bowel sounds, non tender, soft Extremity: Non Tender, No Calf Tenderness, No Pedal Edema (ALVA hose in place) Neurologic/Psychiatric: Alert, Oriented x3 Skin: Warm/Dry, Other (dry dressing in place to knee) Results Lab Laboratory Tests 12/18/22 15:40: Glucometer 120H 12/18/22 20:41: Glucometer 122H 12/19/22 05:25: Hemoglobin 11.6L, Hematocrit 36L 12/19/22 05:51: Glucometer 134H 12/19/22 11:03: Glucometer 166H Assessment/Plan Assessment/Plan Assess & Plan/Chief Complaint 1. Hypertension--home meds restarted 2. DMII--started home meds and on accuchecks with SSI A as well 3. BEV--using home CPAP 4. Right TKA--pain control, lovenox for DVT prophylaxis, PT/OT started Clinical Quality Measures Admission Status Admission Dx 1. Right Unilateral Knee Arthritis--S/P Right TKA per ortho today--pain control, PT/OT, IS, lovenox for DVT prophylaxis, monitor H/H 2. Hypertension--resume home meds 3. DMII--start Jentadueto and accuchecks with SSI A 4. BEV--brought home CPAP CYNDIE RODRÍGUEZ DO Dec 19, 2022 13:08
--- NOTE | 2022-12-19 14:23 | Physical Therapy Daily Note ---
PT Daily Note-Current Subjective Patient agrees to PT. Pain Numeric Pain Scale: 7 Location: Right Location Body Site: Knee Pain Description: Acute Comment: with meds issued Section J - Health Conditions 1. Rarely or not at all 2. Occasionally 3. Frequently 4. Almost constantly 8. Unable to answer Pain Effect on Sleep: 1 Pain Interference with Therapy: 1 Pain Interference w/Day-to-Day: 1 Mental Status Patient Orientation: Normal For Age Transfers SCALE: Activities may be completed with or without assistive devices. 0-Lxdczgzhmi-biugyfc completes the activity by him/herself with no assistance from a helper. 5-Set-up or Clean-up Assistance-helper sets up or cleans up; patient completes activity. [place] assists only prior to or following the activity. 4-Supervision or Touching Assistance-helper provides verbal cues and/or t ouching/steadying and/or contact guard assistance as patient completes activity. Assistance may be provided throughout the activity or intermittently. 3-Partial/Moderate Assistance-helper does LESS THAN HALF the effort. [place] lifts, holds or supports trunk or limbs, but provides less than half the effort. 2-Substantial/Maximal Assistance-helper does MORE THAN HALF the effort. [place] lifts or holds trunk or limbs and provides more than half the effort. 8-Yrnhwpcpc-xmcgfh does ALL the effort. Patient does none of the effort to complete the activity. Or, the assistance of 2 or more helpers is required for the patient to complete the activity. If activity was not attempted, code reason: 7-Patient Refused. 9-Not Applicable-not attempted and the patient did not perform the activity before the current illness, exacerbation or injury. 10-Not Attempted due to Environmental Limitations-(lack of equipment, weather restraints, etc.). 88-Not Attempted due to Medical Conditions or Safety Concerns. Lying to Sitting/Side of Bed(Q: 6 Sit to Stand (QC): 4 Weight Bearing Right Lower Extremity: Right Weight Bearing/Tolerated Left Lower Extremity: Left Full Weight Bearing Gait Training Distance: 300' Walk 10 feet (QC): 5 Walk 50 ft with 2 Turns(QC): 5 Walk 150 ft (QC): 5 Gait Assistive Device: FWW steady, antalgic, reciprocal pattern Exercises Supine Ex: Ankle pumps, Quad Set, Heel Slides, Straight leg raise Supine Reps: 15 Seated Therapy Exercises: Long arc quads Seated Reps: 15 Assessment Patient tolerated treatment well and remains seated EOB with friend present. PT to increase activity and ROM right knee as tolerated by patient. Plan dismissal to home tomorrow after PT per patient report. PT Post Exchange Manager Goals Post Exchange Manager Goals PT Post Exchange Manager Goals Time Frame: Dec 28, 2022 Roll Left & Right (QC): 6 Sit to Lying (QC): 6 Lying-Sitting on Side/Bed(QC): 6 Sit to Stand (QC): 6 Chair/Qwf-sd-Lnzfe Xfer(QC): 6 Toilet Transfer (QC): 6 Does the Patient Walk: Yes Walk 10 feet (QC): 4 Walk 50ft with 2 Turns (QC): 4 Walk 150 ft (QC): 4 1 Step (curb) (QC): 4 4 Steps (QC): 4 12 Steps (QC): 4 PT Plan Treatment/Plan Treatment Plan: Continue Plan of Care Treatment Plan: Bed Mobility, Education, Functional Activity Yonatan, Functional Strength, Group Therapy, Gait, Safety, Therapeutic Exercise, Transfers Treatment Duration: Jan 18, 2023 Frequency: 11 times per week Estimated Hrs Per Day: .25 hour per day Time Time In: 1240 Time Out: 1256 DATE: Dec 19, 2022 Total Billed Treatment Time: 16 Total Billed Treatment 1 visit FA 16 min ZHANNA CISSE PT Dec 19, 2022 14:23
[2022-12-19 16:31] VITALS: BP 109/66
[2022-12-19 20:10] VITALS: BP 90/46
[2022-12-19] MEDS: DULoxetine 30 MG (CYMBALTA) CAP PO SCH (21:37)
[2022-12-19] MEDS: HCTZ PO SCH (21:37)
[2022-12-19] MEDS: BENAZEPRIL PO SCH (21:37)
--- NOTE | 2022-12-19 23:02 | DISCHARGE SUMMARY ---
DISCHARGE DIAGNOSES: 1. Right knee primary osteoarthritis. 2. Hypertension. PROCEDURE: Right total knee arthroplasty. SUMMARY OF HOSPITAL COURSE: The patient is a 72-year-old gentleman who underwent a right total knee arthroplasty on the day of admission. Postoperatively, he did very well. At the time of discharge, the wound was clean and dry and no calf tenderness. Negative Homans sign. He was tolerating his diet well and tolerating pain with oral pain medication. CONDITION AT DISCHARGE: Good. DISCHARGE DIET: Regular. FOLLOWUP: Is in 3 weeks from physical therapy will be arranged. ACTIVITIES: Weightbearing as tolerated with a walker as needed. DISCHARGE MEDICATIONS: Home medications. Percocet as needed for pain and 1 aspirin per day for 30 days. Job ID: [id number] DocumentID: [id number] Dictated Date: 12/19/2022 08:06:19 Senior Product Development Engineer Date: 12/19/2022 23:00:00 Dictated By: ARELI ORTEGA MD
[2022-12-19 23:35] VITALS: BP 92/52
[2022-12-20 03:30] VITALS: BP 87/55
[2022-12-20] MEDS: oxyCODONE/APAP 5/325MG (PERCOCET 5) TABLET PO PRN (03:44)
[2022-12-20 05:00] VITALS: BP 110/68
[2022-12-20] MEDS: inSUlin ASPART (NovoLOG) 1 UNIT/0.01 ML (CHARGE PER UNIT) SC SCH (05:22)
[2022-12-20 05:52] LABS: HEMOGLOBIN 10.7 g/dL (13.3-17.7)
[2022-12-20] MEDS ORDERED: morphine INJ 4 MG/ML 1 ML (VIAL/SYRINGE) IVP PRN (07:00)
--- NOTE | 2022-12-20 07:00 | Progress Note ---
Standard Progress Note Progress Notes/Assess & Plan Date Seen by a Provider: Dec 20, 2022 Time Seen by a Provider: 06:50 Progress/Assessment & Plan post op check denies paresthesias radiographs--HW well positioned without fracture RLE--2 plus DP pulse with brisk cap refill intact DF and PF of toes and ankle sensation intact to light touch throughout s/p RTKA mobilize as able Final Diagnosis no complaints Laboratory Tests Test 12/19/22 11:03 12/19/22 16:21 12/19/22 20:22 12/20/22 05:05 Range/Units Glucometer 166 H 121 H 131 H 70-110 MG/DL Hemoglobin 10.7 L 13.3-17.7 g/dL Hematocrit 33 L 40-54 % Test 12/20/22 05:17 Range/Units Glucometer 129 H 70-110 MG/DL Vital Signs Date Time Temp Pulse Resp B/P (MAP) Pulse Ox O2 Delivery O2 Flow Rate FiO2 12/20/22 05:00 36.5 96 20 110/68 (82) 93 Room Air 12/20/22 03:30 36.5 109 20 87/55 (66) 92 Room Air 12/19/22 23:35 37.4 94 18 92/52 (65) 91 Room Air 12/19/22 21:00 16 12/19/22 20:10 37.9 96 16 90/46 (61) 97 Room Air 12/19/22 20:00 Room Air 12/19/22 16:31 36.6 86 16 109/66 (80) 97 Room Air 12/19/22 12:53 96 Room Air 12/19/22 11:31 37.0 84 18 108/54 (72) 86 Room Air 12/19/22 08:00 Room Air 12/19/22 07:33 37.0 101 18 145/56 (85) 91 Room Air 12/19/22 07:30 18 I & O 12/20/22 07:00 Intake Total 2000 ml Output Total 1250 ml Balance 750 ml RLE--incision clean and dry no calf tenderness neg Peter's s/p RTKA doing well DC after PT today ARELI ORTEGA MD Dec 20, 2022 07:00
[2022-12-20 07:42] VITALS: BP 104/73
[2022-12-20] MEDS: JENTADUETO PO SCH (08:00)
[2022-12-20] MEDS: CARVEDILOL 25 MG TAB PO SCH (08:00)
[2022-12-20] MEDS: HCTZ PO SCH (08:00)
[2022-12-20] MEDS: ENOXAPARIN INJECTION 30 MG/0.3 ML SYR SC SCH (08:00)
[2022-12-20] MEDS: ASPIRIN E.C. 81 MG (ECOTRIN) TAB PO SCH (08:00)
[2022-12-20] MEDS: DULoxetine 30 MG (CYMBALTA) CAP PO SCH (08:00)
[2022-12-20] MEDS: amLODIPine 10 MG (NORVASC) TAB PO SCH (08:00)
[2022-12-20] MEDS: BENAZEPRIL PO SCH (08:00)
[2022-12-20] MEDS: SENNA W/DOCUSATE (SENOKOT S) TABLET PO SCH (08:09)
--- NOTE | 2022-12-20 08:46 | Occupational Ther Daily Note ---
OT Current Status-Daily Note Subjective Sitting up in chair, excited to DC, requests shower set up Pain Numeric Pain Scale: 4 Location: Right Location Body Site: Knee Comment: edema present Mental Status/Objective Patient Orientation: Person, Place, Time, Situation IV access to be removed following shower, OT provided plastic cover for protection ADL-Treatment toileting, shower set up and disrobe of LB/UB garments, walk in shower transfer/bench transfer sequence Therapy Code Descriptions/Definitions Functional [place] Measure: 0=Not Assessed/NA 4=Minimal Assistance 1=Total Assistance 5=Supervision or Setup 2=Maximal Assistance 6=Modified [place] 3=Moderate Assistance 7=Complete IndependenceSCALE: Activities may be completed with or without assistive devices. 4-Rxreyrjaom-wmxbrnf completes the activity by him/herself with no assistance from a helper. 5-Set-up or Clean-up Assistance-helper sets up or cleans up; patient completes activity. [place] assists only prior to or following the activity. 4-Supervision or Touching Assistance-helper provides verbal cues and/or t ouching/steadying and/or contact guard assistance as patient completes activity. Assistance may be provided throughout the activity or intermittently. 3-Partial/Moderate Assistance-helper does LESS THAN HALF the effort. [place] lifts, holds or supports trunk or limbs, but provides less than half the effort. 2-Substantial/Maximal Assistance-helper does MORE THAN HALF the effort. [place] lifts or holds trunk or limbs and provides more than half the effort. 9-Fmxuivxwf-ulfmjl does ALL the effort. Patient does none of the effort to complete the activity. Or, the assistance of 2 or more helpers is required for the patient to complete the activity. If activity was not attempted, code reason: 7-Patient Refused. 9-Not Applicable-not attempted and the patient did not perform the activity before the current illness, exacerbation or injury. 10-Not Attempted due to Environmental Limitations-(lack of equipment, weather restraints, etc.). 88-Not Attempted due to Medical Conditions or Safety Concerns. Eating (QC): 6 Oral Hygiene (QC): 6 Bathing Location: L Arm, R Arm, L Upper Leg, R Upper Leg, L Lower Leg (including foot), R Lower Leg (including foot) (with verbal instruction for safety), Chest, Abdomen, Buttocks, Perineal Area Shower/Bathe Self (QC): 4 (Instruction for safety d/t environment barrieres ) Upper Body Dressing (QC): 6 Lower Body Dressing (QC): 6 On/Off Footwear: 6 (extra time required) Toileting Hygiene (QC): 6 Toilet Transfer (QC): 6 (use of GBs d/t lower toilet than at home) Education OT Patient Education: Correct positioning, Energy conservation, Modified ADL techniques, Progress toward Goal/Update tx plan, Purpose of tx/functional activities, Reviewed precautions, Rehab process, Safety issues, Transfer techniques, Use of adapted equipment Teaching Recipient: Patient Teaching Methods: Demonstration, Discussion Response to Teaching: Verbalize Understanding, Return Demonstration OT Retirement Goals Retirement Goals Toileting Hygiene (QC): 6 Shower/Bathe Self (QC): 4 (no met d/t environmental barrier) Upper Body Dressing (QC): 6 Lower Body Dressing (QC): 6 On/Off Footwear (QC): 6 1=Demonstrate adherence to instructed precautions during ADL tasks. 2=Patient will verbalize/demonstrate understanding of assistive devices/modifications for ADL. 3=Patient will improve strength/tolerance for activity to enable patient to perform ADL's. DC to home planned for today OT Education/Plan Discharge Recommendations Plan/Recommendations: Discharge/Goals Met (DC to home today, rec: supervison w/ home bathing until HH clears) Treatment Plan/Plan of Care Treatment,Training & Education: Yes Patient would benefit from OT for education, treatment and training to promote independence in ADL's, mobility, safety and/or upper extremity function for ADL's. Plan of Care: ADL Retraining, Functional Mobility, UE Funct Exercise/Act Treatment Duration: Dec 28, 2022 Frequency: 3 times per week (3-5 times per week) Estimated Hrs Per Day: .25 hour per day Agreement: Yes Rehab Potential: Good Time Start Time: 08:06 Stop Time: 08:29 DATE: Dec 20, 2022 Total Time Billed (hr/min): 23 Billed Treatment Time 1 visit ADL 2 23 min JONEL SANDOVAL OT Dec 20, 2022 08:46
--- NOTE | 2022-12-20 10:11 | Physical Therapy Daily Note ---
PT Daily Note-Current Subjective Patient agrees to PT. Pain Numeric Pain Scale: 5-Moderate Pain Location: Right Location Body Site: Knee Pain Description: Acute Section J - Health Conditions 1. Rarely or not at all 2. Occasionally 3. Frequently 4. Almost constantly 8. Unable to answer Pain Effect on Sleep: 1 Pain Interference with Therapy: 1 Pain Interference w/Day-to-Day: 1 Mental Status Patient Orientation: Normal For Age Transfers SCALE: Activities may be completed with or without assistive devices. 8-Myrisriqtx-weomwqb completes the activity by him/herself with no assistance from a helper. 5-Set-up or Clean-up Assistance-helper sets up or cleans up; patient completes activity. [place] assists only prior to or following the activity. 4-Supervision or Touching Assistance-helper provides verbal cues and/or touching/steadying and/or contact guard assistance as patient completes activity. Assistance may be provided throughout the activity or intermittently. 3-Partial/Moderate Assistance-helper does LESS THAN HALF the effort. [place] lifts, holds or supports trunk or limbs, but provides less than half the effort. 2-Substantial/Maximal Assistance-helper does MORE THAN HALF the effort. [place] lifts or holds trunk or limbs and provides more than half the effort. 9-Rkykuqxnt-vfhnso does ALL the effort. Patient does none of the effort to complete the activity. Or, the assistance of 2 or more helpers is required for the patient to complete the activity. If activity was not attempted, code reason: 7-Patient Refused. 9-Not Applicable-not attempted and the patient did not perform the activity befo re the current illness, exacerbation or injury. 10-Not Attempted due to Environmental Limitations-(lack of equipment, weather re straints, etc.). 88-Not Attempted due to Medical Conditions or Safety Concerns. Sit to Stand (QC): 6 Weight Bearing Right Lower Extremity: Right Weight Bearing/Tolerated Left Lower Extremity: Left Full Weight Bearing Gait Training Distance: 250' x 2 Walk 10 feet (QC): 6 Walk 50 ft with 2 Turns(QC): 6 Walk 150 ft (QC): 6 Gait Assistive Device: FWW steady, antalgic gait Stair Training Stair Training: Handrails/: 2 handrails #of Steps: 4 1 Step (curb) (QC): 4 4 Steps (QC): 4 Stairs: Pattern: Step to Exercises Supine Ex: Quad Set, Heel Slides, Straight leg raise Supine Reps: 15 Seated Therapy Exercises: Ankle pumps, Long arc quads Seated Reps: 15 Assessment Patient tolerated treatment well and is progressing with treatment plan. Patient instructed and educated on continuing to perform HEP PRN at home. Patient voices understanding. Patient has attained all functional goals. PT Detention Goals Detention Goals PT Detention Goals Time Frame: Dec 28, 2022 Roll Left & Right (QC): 6 Sit to Lying (QC): 6 Lying-Sitting on Side/Bed(QC): 6 Sit to Stand (QC): 6 Chair/Nwp-yc-Jxmna Xfer(QC): 6 Toilet Transfer (QC): 6 Does the Patient Walk: Yes Walk 10 feet (QC): 4 Walk 50ft with 2 Turns (QC): 4 Walk 150 ft (QC): 4 1 Step (curb) (QC): 4 4 Steps (QC): 4 12 Steps (QC): 4 PT Plan Treatment/Plan Treatment Plan: Discontinue PT, goals met Treatment Plan: Bed Mobility, Education, Functional Activity Yonatan, Functional Strength, Group Therapy, Gait, Safety, Therapeutic Exercise, Transfers Treatment Duration: Jan 18, 2023 Frequency: 11 times per week Estimated Hrs Per Day: .25 hour per day Time Time In: 745 Time Out: 808 DATE: Dec 20, 2022 Total Billed Treatment Time: 23 Total Billed Treatment 1 visit EX 9 min FA 14 min ZHANNA CISSE PT Dec 20, 2022 10:11
== END 2022-12-20 09:25 | disposition home health service (06) | DRG 470 ==
LOC: 4TH 06:00 → SURG 06:01 → 4TH 10:27
PROVIDERS: ADMIT Orthopaedic Surgery; ATTEND Orthopaedic Surgery
PROC: 0SRC0J9 Replacement of Right Knee Joint with Synthetic Substitute, Cemented, Open Approach (ICD-10-PCS; principal; 2022-12-18 07:35)
DX: M17.11 Unilateral primary osteoarthritis, right knee (principal); I10 Essential (primary) hypertension; E11.9 Type 2 diabetes mellitus without complications; E78.5 Hyperlipidemia, unspecified; G47.33 Obstructive sleep apnea (adult) (pediatric)
CPT/HCPCS: 36415; 73560; 82310; 82947; 85014; 85018; 86850; 86900; 86901

== ENCOUNTER → 2023-01-31 | Outpatient (RCR) | payer MEDICARE, OTHER ==
[~2023-01-31] MED LIST changes: +TURM500T PO
== END | disposition home or self-care (01) ==
PROVIDERS: ATTEND Orthopaedic Surgery
DX: M17.11 Unilateral primary osteoarthritis, right knee (principal); I10 Essential (primary) hypertension

== ENCOUNTER 2023-02-26 12:50 | Outpatient (RCR) | payer MEDICARE, OTHER | END 2023-03-02 | disposition home or self-care (01) | PROVIDERS: ATTEND Orthopaedic Surgery | DX: M17.11 Unilateral primary osteoarthritis, right knee (principal) ==

== ENCOUNTER 2023-03-18 13:04 | Outpatient (RCR) | payer MEDICARE, OTHER | END 2023-03-18 13:31 | disposition home or self-care (01) | PROVIDERS: ATTEND Orthopaedic Surgery | DX: M17.11 Unilateral primary osteoarthritis, right knee (principal); I10 Essential (primary) hypertension; Z96.651 Presence of right artificial knee joint ==